=== PATIENT | female | born 1960 | race Caucasian/White ===

== ENCOUNTER 2017-07-26 13:35 | Emergency (ER) | payer OTHER ==
[~2017-07-26] VITALS: Ht 160 cm; Wt 53.5 kg
[2017-07-26 13:39] VITALS: Ht 160 cm; Wt 53.5 kg
[2017-07-26 15:17] VITALS: BP 148/82
== END 2017-07-26 15:17 | disposition home or self-care (01) ==
LOC: ED 13:35
DX: S20.212A Contusion of left front wall of thorax, initial encounter (principal); W18.39XA Other fall on same level, initial encounter; Y93.89 Activity, other specified; Y92.89 Other specified places as the place of occurrence of the external cause; Y99.8 Other external cause status